=== PATIENT | female | born 1965 | race Caucasian/White ===

== ENCOUNTER 2023-03-13 12:47 | Emergency (ER) | payer MEDICARE, OTHER ==
[~2023-03-13] VITALS: Ht 154.9 cm; Wt 66.7 kg
[~2023-03-13 12:47] MED LIST: CARBIDOPA-LEVO1 EAC5 PO; CARBIDOPA-LEVO1 EACH PO; DOXYCYCLINE HY100 MG PO; MIRAPEX1 MG PO; NORCO 7.5-3251 EACH PO; PERCOCET 5-3251 EACH PO; PREDNISONE5 MG PO; SOMA350 MG PO; XANAX0.5 MG PO
== END 2023-03-13 13:56 | disposition home or self-care (01) ==
LOC: EDBD 12:47 → ER 12:54
DX: S00.83XA Contusion of other part of head, initial encounter (principal); W01.0XXA Fall on same level from slipping, tripping and stumbling without subsequent striking against object, initial encounter; Y93.01 Activity, walking, marching and hiking; Y92.89 Other specified places as the place of occurrence of the external cause; G20 Parkinson's disease; E78.5 Hyperlipidemia, unspecified; F41.9 Anxiety disorder, unspecified; M54.9 Dorsalgia, unspecified; G89.29 Other chronic pain
CPT/HCPCS: 70450; 99283